=== PATIENT | male | born 1960 | race Caucasian/White ===

== ENCOUNTER 2017-05-30 12:27 | Day surgery (SDC) | payer MEDICARE, OTHER ==
[~2017-05-30] VITALS: Ht 172.7 cm; Wt 76.6 kg
[2017-05-30 14:04] VITALS: BP 159/77; PULSE 46; RESP 18
[2017-05-30 14:16] VITALS: Ht 172.7 cm; Wt 76.6 kg
[2017-05-30] MEDS ORDERED: ZOLOFT PO (14:31)
[2017-05-30] MEDS ORDERED: LISINOPRIL PO (14:31)
[2017-05-30] MEDS ORDERED: ASPI-535 PO (14:31)
--- NOTE | 2017-05-30 15:10 | OPPN ---
Date/Time of Note Date/Time of Note DATE: 05/30/17 TIME: 15:09 Operative Report Preoperative Diagnosis Screening Postoperative Diagnosis Internal hemorrhoids No colon neoplasm is identified Operation/Procedure Performed Colonoscopy Provider: ANI CONLEY MD Anesthesia Type: MAC Estimated blood loss: none Transfusion Required: no Specimen: none Grafts/Implants: none Complications: no ANI CONLEY MD May 30, 2017 15:10
[2017-05-30 15:30] VITALS: BP 159/80; PULSE 47; RESP 12
--- NOTE | 2017-05-30 17:25 | GILP ---
DATE OF PROCEDURE: 05/30/2017 PROCEDURE PERFORMED: Colonoscopy. SURGEON: Jasiel Gonzales MD PREOPERATIVE DIAGNOSIS: Screening colonoscopy. POSTOPERATIVE DIAGNOSES: 1. Colonoscopy all the way to the cecum. 2. Internal hemorrhoids. 3. No colon neoplasm was identified. INDICATION: Mr. Igor Cervantes is a 56-year-old male patient who was scheduled for a screening colonoscopy. The procedure and possible complications were well explained to the patient. The patient understood and consented to the procedure. DESCRIPTION OF PROCEDURE: Under the influence of anesthesia, the colonoscope was carefully introduced in the rectum. Under direct vision, it was advanced all the way to the cecum. FINDINGS: Patient had internal hemorrhoids. No colon neoplasm was identified. The patient tolerated the procedure very well. There was no complication from the procedure. At the end of the procedure, he was awake, with stable vital signs, and he was discharged home to the care of his family. IMPRESSION: 1. Colonoscopy all the way to the cecum. 2. Internal hemorrhoids. 3. No colon neoplasm was identified. PLAN: Next screening colonoscopy in 10 years. Dictated By: MD BILLY Ingram/magdalena/dontrell /Document#: [id number] CC: Jasiel Gonzales MD;*[facility]*
--- NOTE | 2017-06-04 11:55 | CONS ---
PATIENT NAME: IGOR GILLESPIE DATE OF ADMISSION: DATE OF CONSULTATION: 05/10/2017 I thank you very much for this kind referral. HISTORY OF PRESENT ILLNESS: Mr. Igor Mcgovern is a 56- year-old male patient who was referred to me for further evaluation of change in the bowel habits. Patient has never had a screening colonoscopy. Patient has polycystic kidney disease with chronic renal failure and he is on dialysis. He is being considered for kidney transplantation. He has history of gastritis and he is on omeprazole is on baby aspirin a day. There is no history of gallstones. He does not have any fever, chills, or jaundice. No liver disease. PAST MEDICAL HISTORY: He has hypertensive, not diabetic. No history of heart disease or lung problem. Patient has history of depression. SOCIAL HISTORY: Nonsmoker. Does not abuse alcohol. FAMILY HISTORY: No family history of gastrointestinal tract neoplasm. ALLERGIES: NO DRUG ALLERGIES. MEDICATION: 1. Omeprazole 20 mg p.o. daily. 2. Amlodipine 10 mg p.o. daily. 3. Lisinopril 10 mg p.o. daily. 4. Zoloft 25 mg p.o. daily. 5. Aspirin 81 mg p.o. daily. PHYSICAL EXAMINATION: VITAL SIGNS: He is 5 feet 9 inches tall, and weighs 180 pounds, BMI 26. Blood pressure 146/86. CARDIAC: Normal heart sounds. LUNGS: Clear. ABDOMEN: Soft, no masses, no tenderness. Normal bowel sounds. NEUROLOGIC: Normal neurological exam. IMPRESSION: 1. Change in the bowel habits and the patient has never had a screening colonoscopy. 2. Gastritis. The patient is on omeprazole. 3. Hypertension. 4. Polycystic kidney disease with renal failure and the patient is on dialysis. He is being considered for kidney transplantation. 5. Depression. 6. The patient is on baby aspirin a day. PLAN: Screening colonoscopy. Follow up with a primary MD for followup of BMI, as well as for the management of hypertension. The procedure and possible complications were well explained to the patient. He understands and consents to the procedure. I thank you once again. With warmest personal regards, Dictated By: MD BILLY Ingram/magdalena/solomon /Document#: [id number]
== END 2017-05-30 15:48 | disposition home or self-care (01) ==
LOC: GIL 12:27
PROVIDERS: ATTEND Internal Medicine Gastroenterology
DX: Z12.11 Encounter for screening for malignant neoplasm of colon (principal); K64.8 Other hemorrhoids; F32.9 Major depressive disorder, single episode, unspecified; Z79.82 Long term (current) use of aspirin; K29.70 Gastritis, unspecified, without bleeding; Q61.3 Polycystic kidney, unspecified; I12.0 Hypertensive chronic kidney disease with stage 5 chronic kidney disease or end stage renal disease; N18.6 End stage renal disease; Z99.2 Dependence on renal dialysis
CPT/HCPCS: 84132